=== PATIENT | female | born 1950 | race Caucasian/White ===

== ENCOUNTER 2018-05-13 15:03 | Emergency (ER) | payer MEDICARE ==
[2018-05-13 15:11] VITALS: RESP 18
--- NOTE | 2018-05-13 16:33 | ED ---
Extremity Problem HPI - General Chief complaint: Extremity Problem,Nontraumatic Stated complaint: Leg pain Time Seen by Provider: 05/13/18 16:14 Source: patient, RN notes reviewed Mode of arrival: wheelchair Limitations: no limitations - History of Present Illness Initial comments: 68-year-old female presents emergency Department chief complaint right calf pain. Patient states that it started after having a " charley horse" the night prior. Patient states that she has had these in the past. She states is never lasted this long. Patient states it is worse when she tries to flex her calf muscle. Patient denies any chest pain or shortness breath no history DVT. Patient denies any redness or swelling to her leg. - Related Data Home Medications Medication Instructions Recorded Confirmed Escitalopram [Lexapro] 10 mg PO DAILY 11/05/15 05/13/18 Montelukast [Singulair] 10 mg PO HS 11/05/15 05/13/18 Atorvastatin [Lipitor] 20 mg PO HS 05/13/18 05/13/18 Fexofenadine HCl [Lety Allergy] 180 mg PO DAILY 05/13/18 05/13/18 Meloxicam [Mobic] 7.5 mg PO BID 05/13/18 05/13/18 rOPINIRole HCL [Requip] 0.25 mg PO HS 05/13/18 05/13/18 Allergies Allergy/AdvReac Type Severity Reaction Status Date / Time Penicillins Allergy Itching,yumiko Verified 05/13/18 16:28 h Review of Systems ROS Statement: Those systems with pertinent positive or pertinent negative responses have been documented in the HPI. ROS Other: All systems not noted in ROS Statement are negative. Past Medical History Past Medical History: Asthma, Hyperlipidemia, Osteoarthritis (OA) Additional Past Medical History / Comment(s): SOB, History of Any Multi-Drug Resistant Organisms: None Reported Past Surgical History: Back Surgery, Orthopedic Surgery, Tubal Ligation Additional Past Surgical History / Comment(s): Disectomy/fusion/titanium plate- neck, zaki rotator cuff, left foot hammer toes, left foot neuroma, mult cysts Past Anesthesia/Blood Transfusion Reactions: No Reported Reaction Past Psychological History: Anxiety, Depression Smoking Status: Never smoker Past Alcohol Use History: Occasional Past Drug Use History: None Reported - Past Family History Father Family Medical History: Cancer General Exam Limitations: no limitations General appearance: alert, in no apparent distress Respiratory exam: Present: normal lung sounds bilaterally. Absent: respiratory distress, wheezes, rales, rhonchi, stridor Cardiovascular Exam: Present: regular rate, normal rhythm, normal heart sounds. Absent: systolic murmur, diastolic murmur, rubs, gallop, clicks Extremities exam: Present: other (Mild tenderness the right calf) Course Vital Signs 05/13/18 05/13/18 15:08 18:25 Temperature 98.2 F 98.1 F Pulse Rate 84 72 Respiratory 18 18 Rate Blood Pressure 118/65 113/63 O2 Sat by Pulse 97 99 Oximetry Medical Decision Making - Medical Decision Making 68-year-old female presented to [facility] from for right leg pain concern for DVT. Ultrasound was obtained no acute acute DVT. Patient has pain residual from Matthews spasm. Disposition Clinical Impression: Right calf pain, Muscle spasm of right calf Disposition: HOME SELF-CARE Condition: Stable Instructions: Leg Pain (ED) Additional Instructions: Please return to the Emergency Department if symptoms worsen or any other concerns. Is patient prescribed a controlled substance at d/c from ED?: No Referrals: Woody Simmons MD [Primary Care Provider] - 1-2 days Time of Disposition: 18:36
--- NOTE | 2018-05-13 18:21 | US ---
EXAMINATION TYPE: US venous doppler duplex LE RT DATE OF EXAM: 05/13/2018 6:06 PM COMPARISON: NONE CLINICAL HISTORY: Pain. SIDE PERFORMED: Right TECHNIQUE: The lower extremity deep venous system is examined utilizing real time linear array sonog ketty with graded compression, doppler sonography and color-flow sonography. VESSELS IMAGED: External Iliac Vein (EIV) Common Femoral Vein Deep Femoral Vein Greater Saphenous Vein * Femoral Vein Popliteal Vein Small Saphenous Vein * Proximal Calf Veins (* superficial vessels) Right Leg: Negative for DVT Grayscale, color doppler, spectral doppler imaging performed of the deep veins of the right lower ext remities. There is normal flow, compressibility, vascular waveforms. IMPRESSION: No ultrasound evidence for acute DVT in the right lower extremity.
[2018-05-13 18:26] VITALS: BP 113/63; PULSE 72; TEMP 98.1
== END 2018-05-13 18:42 | disposition home or self-care (01) ==
LOC: EC 15:03
DX: M62.831 Muscle spasm of calf (principal); J45.909 Unspecified asthma, uncomplicated; E78.5 Hyperlipidemia, unspecified; M19.90 Unspecified osteoarthritis, unspecified site; F41.9 Anxiety disorder, unspecified; F32.9 Major depressive disorder, single episode, unspecified; Z79.1 Long term (current) use of non-steroidal anti-inflammatories (NSAID); Z79.899 Other long term (current) drug therapy; Z88.0 Allergy status to penicillin
CPT/HCPCS: 99283